=== PATIENT | female | born 1990 | race Caucasian/White ===

== ENCOUNTER 2025-03-23 16:18 | Outpatient (CLI) | payer BC, SELFPAY ==
--- NOTE | ~2025-03-23 | XR_ITS ---
EXAMINATION: XR toe 1st RT min 2V, 03/23/2025 16:26 TEST FIXTURE DESIGNER HISTORY: Pain in right toe COMPARISON: No comparisons available. Findings: There is a subtle nondisplaced fracture suspected of the proximal aspect of the distal phalanx, no additional fracture identified. No significant degenerative changes. Soft tissues unremarkable. Impression: Nondisplaced fracture suspected. Follow-up suggested to assess Reviewed, dictated and finalized at location P. FIXTURE DESIGNER Impression: Nondisplaced fracture suspected. Follow-up suggested to assess
== END 2025-03-23 16:19 | disposition home or self-care (01) ==
LOC: MICIMG 16:22
PROVIDERS: PCP Physician Assistant; Visit Provider Physician Assistant
DX: M79.674 Pain in right toe(s) (principal)
CPT/HCPCS: 73660